=== PATIENT | female | born 1955 | race Caucasian/White ===

== ENCOUNTER → 2017-05-01 | Outpatient (CLI) | payer OTHER ==
[~2017-05-01] MED LIST: CERTAGEN PO; CITRACAL200 MG; DEXFOL PO; FEMARA2.5 MG PO; FOSAMAX PO; LEVAQUIN PO; LORTAB 7.5/325 PO; MAXALT MLT10 MG/TAB PO; NASACORT AQ16.5 GM; NASOCORT; SYNTHROID PO
--- NOTE | ~2017-05-01 | MY29 ---
[facility] A Service of [facility] / [facility] RADIOLOGY TEXT RESULTS PATIENT: MATT AHUJA LOCATION: [facility] : 55 UNIT #: [id number] AGE: [address]: Priyanka Garcia MD SEX: F ORDER DR: [id number] [facility] [address]. [place], [place] [address] [id number] O MR#: [id number] Acc #: [id number] NAME: MATT AHUJA : 1955 SEX: F STUDY DATE/TIME: 05/01/2017 16:45 UNIT: [facility] ROOM: STUDY DESCRIPTION: MY DEANNA SCREENING W/ CAD BILAT Attending Physician: Priyanka Garcia M.D. Referring Physician: Priyanka Garcia M.D. Ordering Physician: Priyanka Garcia M.D. Primary Care Physician: Priyanka Garcia M.D. MEDICAL IMAGING REPORT This report is preliminary unless electronic signature is present EXAM Screening mammogram, 05/01/2017. INDICATIONS 61-year-old with history of left lumpectomy for breast cancer. No current complaints. TECHNIQUE Digital CC and MLO views were obtained in both breasts in addition to left exaggerated CC and left true lateral views. Study was reviewed with an FDA-approved CAD device. COMPARISON Comparison made with 03/08/2016, 01/08/2015, and 01/02/2014. FINDINGS Breast parenchyma remains heterogeneously dense. No dominant masses or suspicious microcalcifications are seen. Lumpectomy bed on the left is stable. IMPRESSION Benign mammogram. Followup in 1 year recommended. Patients over the age of 40 are entered into a reminder system with target due date for the next mammogram. A result letter will also be sent to the patient. BIRADS: 2 Benign finding. Dictated by... Junior Flores Jr., M.D. [facility] A Service of [facility] / [facility] RADIOLOGY TEXT RESULTS PATIENT: MATT AHUJA LOCATION: [facility] : 55 UNIT #: [id number] AGE: [address]: Priyanka Garcia MD SEX: F ORDER DR: THIS IS AN ELECTRONICALLY VERIFIED REPORT Junior Flores Jr., M.D. at 05/02/2017 4:39 PM Jeffrey TD: 05/02/2017 15:50 JOB #: [id number] MEDICAL IMAGING REPORT Page 1 of 1 COPY
== END | disposition home or self-care (01) ==
LOC: CWCC 16:11
DX: Z12.31 Encounter for screening mammogram for malignant neoplasm of breast (principal); Z85.3 Personal history of malignant neoplasm of breast; Z98.890 Other specified postprocedural states
CPT/HCPCS: G0202